=== PATIENT | male | born 1995 | race Caucasian/White ===

== ENCOUNTER 2018-05-15 09:48 | Emergency (ER) | payer BC ==
[2018-05-15] MEDS ORDERED: DIAZEPAM 5 MG TABLET ONE (10:33)
[2018-05-15] MEDS ORDERED: MECLIZINE HCL 12.5 MG TAB ONE (10:33)
--- NOTE | 2018-05-15 12:00 | ER ---
Nurse's Notes [facility] Name: Jesús Villagomez Age: 22 yrs Sex: Male : 1995 Arrival Date: 05/15/2018 Time: 09:59 Bed 15 Private MD: None, None Diagnosis: Vertigo Presentation: 05/15 10:02 Presenting complaint: Patient states: I have been feeling really dizzy like Im drunk la1 for the last few days and last night it got so bad I threw up, pt denies abd pain, fevers. Transition of care: patient was not received from another setting of care. Onset of symptoms was May 15, 2018. Risk Assessment: Do you want to hurt yourself or someone else? Patient reports no desire to harm self or others. Initial Sepsis Screen: Does the patient meet any 2 criteria? No. Patient's initial sepsis screen is negative. Does the patient have a suspected source of infection? No. Patient's initial sepsis screen is negative. Care prior to arrival: None. 10:02 Method Of Arrival: Ambulatory la1 10:02 Acuity: QUIQUE 3 la1 Triage Assessment: 10:21 General: Appears in no apparent distress. uncomfortable, Behavior is calm, cooperative, hj appropriate for age. Pain: Denies pain. GI: Reports nausea. Historical: - Allergies: 10:02 No Known Allergies; la1 - Home Meds: 10:02 None [Active]; la1 - PMHx: 10:02 None; la1 - PSHx: 10:02 Tonsillectomy; la1 - Immunization history:: Adult Immunizations up to date. - Social history:: Smoking status: Patient uses tobacco products, smokes one pack cigarettes per day. - Ebola Screening: : No symptoms or risks identified at this time. Screenin:21 Abuse screen: Denies threats or abuse. Denies injuries from another. Nutritional hj screening: No deficits noted. Tuberculosis screening: No symptoms or risk factors identified. Fall Risk None identified. Assessment: 10:21 GI: Abdomen is non-distended. hj 10:21 General: Appears in no apparent distress. uncomfortable, Behavior is calm, cooperative, hj appropriate for age. Pain: Denies pain. Neuro: Level of Consciousness is awake, alert, obeys commands, Oriented to person, place, time, situation, Appropriate for age Reports dizziness. Cardiovascular: Capillary refill < 3 seconds Patient's skin is warm and dry. Respiratory: Airway is patent Respiratory effort is even, unlabored, Respiratory pattern is regular, symmetrical. : No signs and/or symptoms were reported regarding the genitourinary system. EENT: No signs and/or symptoms were reported regarding the EENT system. Derm: No signs and/or symptoms reported regarding the dermatologic system. Musculoskeletal: No signs and/or symptoms reported regarding the musculoskeletal system. 11:30 Reassessment: Patient and/or family updated on plan of care and expected duration. Pain hj level reassessed. Patient is alert, oriented x 3, equal unlabored respirations, skin warm/dry/pink. Patient states feeling better. Patient states symptoms have improved. 12:04 Reassessment: D/C instructions given;. hj Vital Signs: 10:02 BP 123 / 86; Pulse 72; Resp 16; Temp 97.3; Pulse Ox 98% on R/A; Weight 63.5 kg; Height la1 5 ft. 7 in. (170.18 cm); 11:06 BP 119 / 71; Pulse 65; Resp 18; Pulse Ox 100% on R/A; hj 12:04 BP 118 / 70; Pulse 67; Resp 18; Pulse Ox 100% on R/A; hj 10:02 Body Mass Index 21.93 (63.50 kg, 170.18 cm) la1 ED Course: 09:59 Patient arrived in ED. sb2 09:59 None, None is Private Physician. sb2 10:02 Arm band placed on left wrist. la1 10:03 Triage completed. la1 10:04 Jeff Mccullough, RICKEY is Primary Nurse. hj 10:08 Nitin Giron PA is PHCP. jr8 10:08 Beltran Hassan MD is Attending Physician. jr8 10:22 Patient has correct armband on for positive identification. Bed in low position. Call hj light in reach. Side rails up X 1. 12:05 No provider procedures requiring assistance completed. Patient did not have IV access hj during this emergency room visit. Administered Medications: 10:23 Drug: Meclizine 25 mg Route: PO; hj 11:30 Follow up: Response: No adverse reaction hj 10:23 Drug: Valium 5 mg Route: PO; hj 11:30 Follow up: Response: No adverse reaction Outcome: 11:59 Discharge ordered by MD. hernandez 12:05 Discharged to home ambulatory. 12:05 Condition: stable 12:05 Discharge instructions given to patient, Instructed on discharge instructions, follow up and referral plans. medication usage, Demonstrated understanding of instructions, follow-up care, medications, Prescriptions given X 3. 12:05 Patient left the ED. Signatures: Nitin Giron PA PA jr8 Attema, Lee RN RN la1 Jeff Mccullough RN RN Coby Beth sb2
--- NOTE | 2018-05-15 12:00 | EDPHYS ---
Physician Documentation [facility] Name: Jesús Villagomez Age: 22 yrs Sex: Male : 1995 Arrival Date: 05/15/2018 Time: 09:59 Bed 15 Private MD: None, None ED Physician Beltran Hassan HPI: 05/15 10:36 This 22 yrs old Male presents to ER via Ambulatory with complaints of jr8 Dizziness, Nausea/Vomiting. 10:36 The patient presents with dizziness, vertigo. Onset: The symptoms/episode jr8 began/occurred acutely, 2 day(s) ago. Context: occurred at home. Modifying factors: The symptoms are alleviated by holding head still, lying down, the symptoms are aggravated by movement of head, standing up, changing position. Associated signs and symptoms: Pertinent positives: nausea, vomiting. Severity of symptoms: At their worst the symptoms were mild in the emergency department the symptoms are unchanged. Patient's baseline: Neuro: alert and fully oriented, Motor: no deficits, Ambulation: walks without assistance, Speech: normal. The patient has not experienced similar symptoms in the past. The patient has not recently seen a physician. Historical: - Allergies: 10:02 No Known Allergies; la1 - Home Meds: 10:02 None [Active]; la1 - PMHx: 10:02 None; la1 - PSHx: 10:02 Tonsillectomy; la1 - Immunization history:: Adult Immunizations up to date. - Social history:: Smoking status: Patient uses tobacco products, smokes one pack cigarettes per day. - Ebola Screening: : No symptoms or risks identified at this time. ROS: 10:36 Eyes: Negative for injury, pain, redness, and discharge, ENT: Negative for injury, jr8 pain, and discharge, Neck: Negative for injury, pain, and swelling, Cardiovascular: Negative for chest pain, palpitations, and edema, Respiratory: Negative for shortness of breath, cough, wheezing, and pleuritic chest pain, Back: Negative for injury and pain, MS/Extremity: Negative for injury and deformity, Skin: Negative for injury, rash, and discoloration. 10:36 Abdomen/GI: Positive for nausea and vomiting, Negative for abdominal pain, diarrhea, abdominal distension, hematemesis, black/tarry stool, rectal bleeding, bowel incontinence, flatulence. 10:36 Neuro: Positive for dizziness, Negative for altered mental status, gait disturbance, headache, hearing loss, loss of consciousness, numbness, seizure activity, speech changes, syncope, near syncope, tingling, tinnitus, tremor, visual changes, weakness. Exam: 10:36 Eyes: Pupils equal round and reactive to light, extra-ocular motions intact. Lids and jr8 lashes normal. Conjunctiva and sclera are non-icteric and not injected. Cornea within normal limits. Periorbital areas with no swelling, redness, or edema. ENT: Nares patent. No nasal discharge, no septal abnormalities noted. Tympanic membranes are normal and external auditory canals are clear. Oropharynx with no redness, swelling, or masses, exudates, or evidence of obstruction, uvula midline. Mucous membranes moist. Neck: Trachea midline, no thyromegaly or masses palpated, and no cervical lymphadenopathy. Supple, full range of motion without nuchal rigidity, or vertebral point tenderness. No Meningismus. Cardiovascular: Regular rate and rhythm with a normal S1 and S2. No gallops, murmurs, or rubs. Normal PMI, no JVD. No pulse deficits. Respiratory: Lungs have equal breath sounds bilaterally, clear to auscultation and percussion. No rales, rhonchi or wheezes noted. No increased work of breathing, no retractions or nasal flaring. Abdomen/GI: Soft, non-tender, with normal bowel sounds. No distension or tympany. No guarding or rebound. No evidence of tenderness throughout. Back: No spinal tenderness. No costovertebral tenderness. Full range of motion. Skin: Warm, dry with normal turgor. Normal color with no rashes, no lesions, and no evidence of cellulitis. MS/ Extremity: Pulses equal, no cyanosis. Neurovascular intact. Full, normal range of motion. 10:36 Neuro: Orientation: to person, place, time \T\ situation. Mentation: is normal, Memory: is normal, immediate memory is intact, recent memory is intact, remote memory is intact, Cranial nerves: CN I not tested, CN II- XII are normal as tested, visual dudley are intact. extraocular movements are intact, Facial palsy and sensory deficits are absent. no gross hearing deficit,. left lateral nystagmus, Speech is clear and appropriate. Tongue strength is normal, Cerebellar function: normal finger to nose testing, heel to hyde testing is normal, Motor: moves all fours, strength is 5/5 in all extremities, Sensation: no obvious gross deficits, Gait: not tested. seizure activity, is not displayed by the patient, Abnormal movements: there are no abnormal movements. Vital Signs: 10:02 BP 123 / 86; Pulse 72; Resp 16; Temp 97.3; Pulse Ox 98% on R/A; Weight 63.5 kg; Height la1 5 ft. 7 in. (170.18 cm); 11:06 BP 119 / 71; Pulse 65; Resp 18; Pulse Ox 100% on R/A; hj 12:04 BP 118 / 70; Pulse 67; Resp 18; Pulse Ox 100% on R/A; hj 10:02 Body Mass Index 21.93 (63.50 kg, 170.18 cm) la1 MDM: 10:08 Patient medically screened. jr8 12:00 Data reviewed: vital signs, nurses notes, and as a result, I will discharge patient. jr8 Data interpreted: Pulse oximetry: on room air is 100 %. Interpretation: normal. Counseling: I had a detailed discussion with the patient and/or guardian regarding: the historical points, exam findings, and any diagnostic results supporting the discharge/admit diagnosis, the need for outpatient follow up, a family practitioner, to return to the emergency department if symptoms worsen or persist or if there are any questions or concerns that arise at home. Response to treatment: the patient's symptoms have mildly improved after treatment. Administered Medications: 10:23 Drug: Meclizine 25 mg Route: PO; 11:30 Follow up: Response: No adverse reaction 10:23 Drug: Valium 5 mg Route: PO; hj 11:30 Follow up: Response: No adverse reaction Disposition: 05/16 10:23 Co-signature as Attending Physician, Beltran Hassan MD. Disposition: 05/15/18 11:59 Discharged to Home. Impression: Vertigo. - Condition is Stable. - Discharge Instructions: Benign Positional Vertigo, Vertigo. - Prescriptions for Meclizine 25 mg Oral Tablet - take 1 tablet by ORAL route every 8 hours As needed; 30 tablet. Valium 2 mg Oral Tablet - take 1 tablet by ORAL route every 8 hours As needed; 20 tablet. Zofran 4 mg Oral Tablet - take 1 tablet by ORAL route every 12 hours As needed; 20 tablet. - Work release form, Medication Reconciliation Form, Thank You Letter, Antibiotic Education, Prescription Opioid Use form. - Follow up: Private Physician; When: 1 week; Reason: Recheck today's complaints, Continuance of care, Re-evaluation by your physician. - Problem is new. - Symptoms have improved. Signatures: Nitin Giron PA PA jr8 Kyle Aceves RN RN la1 Jeff Mccullough RN RN hj Beltran Hassan MD MD gs Corrections: (The following items were deleted from the chart) 05/15 12:05 11:59 05/15/2018 11:59 Discharged to Home. Impression: Vertigo. Condition is Stable. hj Forms are Medication Reconciliation Form, Thank You Letter, Antibiotic Education, Prescription Opioid Use. Follow up: Private Physician; When: 1 week; Reason: Recheck today's complaints, Continuance of care, Re-evaluation by your physician. Problem is new. Symptoms have improved. jr8
== END 2018-05-15 12:05 | disposition home or self-care (01) ==
LOC: ER 09:48
DX: R42 Dizziness and giddiness (principal); F17.210 Nicotine dependence, cigarettes, uncomplicated
CPT/HCPCS: 99283